=== PATIENT | female | born 1955 | race Two or more races ===

== ENCOUNTER 2017-08-07 11:00 | Inpatient (IN) | payer SELFPAY ==
[~2017-08-07] VITALS: Ht 170.2 cm; Wt 80.7 kg
[2017-08-07 11:35] LABS: BASOPHILS % 0.9 % (0.0-2.0); EOSINOPHILS % 3.4 % (0.0-5.0); HEMATOCRIT. 27.1 % (36.0-48.0); HEMOGLOBIN. 9.1 g/dL (12.0-16.0); LYMPHOCYTES % 11.6 % (20.0-50.0); MEAN CORPUSCULAR HEMOGLOBIN 29.7 pg (28.0-32.0); MEAN CORPUSCULAR VOLUME 88.2 fL (81.0-99.0); MEAN PLATELET VOLUME 8.9 fl (7.4-10.4); MONOCYTES % 10.4 % (2.0-8.0); NEUTROPHILS % 73.7 % (40.0-76.0); PLATELET 117 x1000/uL (130-400); RED BLOOD CELL COUNT 3.07 mill/uL (4.2-5.4)
[2017-08-07 11:42] LABS: PROTHROMBIN TIME 10.7 sec (9.4-11.6)
[2017-08-07 11:43] LABS: CHLORIDE 111 mEq/L (98-107)
[2017-08-07 11:45] LABS: CARBON DIOXIDE 17 mEq/L (21-32)
[2017-08-07 11:52] LABS: TROPONIN I 0.05 ng/mL (0.00-0.04)
[2017-08-07] MEDS ORDERED: INSULIN REGULAR (HUMULIN R) 300UNITS/3ML IV ONE (13:15)
[2017-08-07] MEDS ORDERED: DEXTROSE 50% WATER 50ML SYRINGE IV ONE (13:15)
[2017-08-07 16:00] VITALS: BP_SYST 140; BP_SYST 151; BP_DIAS 75; BP_DIAS 85
[2017-08-07] MEDS ORDERED: ACETAMINOPHEN 325MG TABLET PO PRN (16:30)
[2017-08-07] MEDS ORDERED: DOCUSATE SODIUM 100MG CAPSULE PO PRN (16:30)
[2017-08-07] MEDS ORDERED: CLONIDINE 0.1MG TABLET PO PRN (16:30)
[2017-08-07] MEDS ORDERED: MAGNESIUM/ALUMINUM HYDROXIDE/SIMETHICONE 30ML UDC PO PRN (16:30)
[2017-08-07] MEDS ORDERED: IPRATROPIUM/ALBUTEROL 0.5-3(2.5)MG/3ML NEB INH PRN (16:30)
[2017-08-07] MEDS ORDERED: GUAIFENESIN 200MG/10ML SUGAR FREE UDC PO PRN (16:30)
[2017-08-07] MEDS ORDERED: NA PHOS,M-B/NA PHOS,DI-BA ENEMA 118ML PR PRN (16:30)
[2017-08-07] MEDS ORDERED: ONDANSETRON HCL 4MG/2ML VIAL IV PRN (16:30)
[2017-08-07] MEDS ORDERED: DIPHENHYDRAMINE 50MG/ML VIAL IV PRN (16:30)
[2017-08-07] MEDS ORDERED: NITROGLYCERIN 0.4MG TABLET SL SL PRN (16:30)
[2017-08-07] MEDS: AMLODIPINE 10MG TABLET PO SCH (16:30)
[2017-08-07] MEDS: SEVELAMER CARBONATE 800 MG TABLET PO SCH (17:50)
[2017-08-07] MEDS ORDERED: DEXTROSE 50% WATER 50ML SYRINGE IV PRN (18:45)
[2017-08-07 20:42] VITALS: BP 104/57
[2017-08-07] MEDS: INSULIN LISPRO 100 UNITS/ML SUBCUT SCH (21:00)
[2017-08-07] MEDS: ATORVASTATIN CALCIUM 20MG TABLET PO SCH (21:00)
[2017-08-07] MEDS: BLOOD SUGAR DIAGNOSTIC STRIP TEST SCH (21:08)
[2017-08-07 23:21] LABS: TROPONIN I 0.03 ng/mL (0.00-0.04)
[2017-08-08] VITALS: BP 131/57
[2017-08-08 04:00] VITALS: BP 135/70
[2017-08-08 06:45] LABS: TROPONIN I 0.03 ng/mL (0.00-0.04)
[2017-08-08] MEDS: BLOOD SUGAR DIAGNOSTIC STRIP TEST SCH ×4 (07:03→20:45)
[2017-08-08 07:26] VITALS: BP 145/71
[2017-08-08] MEDS: INSULIN LISPRO 100 UNITS/ML SUBCUT SCH ×4 (07:50→20:45)
[2017-08-08] MEDS: FOLIC ACID/VITAMIN B COMP W-C TABLET PO SCH (08:10)
[2017-08-08] MEDS: SEVELAMER CARBONATE 800 MG TABLET PO SCH ×3 (08:10→18:20)
[2017-08-08] MEDS: ENOXAPARIN 30MG/0.3ML SYR SUBCUT SCH (08:10)
[2017-08-08] MEDS: PANTOPRAZOLE SODIUM 40 MG/VIAL IV SCH (08:10)
[2017-08-08] MEDS: AMLODIPINE 10MG TABLET PO SCH (08:11)
[2017-08-08 09:59] LABS: BASOPHILS % 0.8 % (0.0-2.0); EOSINOPHILS % 3.1 % (0.0-5.0); HEMATOCRIT. 26.5 % (36.0-48.0); LYMPHOCYTES % 13.8 % (20.0-50.0); MEAN CORPUSCULAR HEMOGLOBIN 29.3 pg (28.0-32.0); MEAN CORPUSCULAR VOLUME 86.8 fL (81.0-99.0); MEAN PLATELET VOLUME 8.7 fl (7.4-10.4); MONOCYTES % 9.9 % (2.0-8.0); NEUTROPHILS % 72.4 % (40.0-76.0); PLATELET 118 x1000/uL (130-400); RED BLOOD CELL COUNT 3.06 mill/uL (4.2-5.4); RED CELL DISTRIBUTION WIDTH 14.8 % (11.6-14.6)
[2017-08-08 11:28] VITALS: BP 132/61
[2017-08-08 15:29] VITALS: BP 118/55
[2017-08-08 20:00] VITALS: BP 117/65
[2017-08-08] MEDS: ATORVASTATIN CALCIUM 20MG TABLET PO SCH (20:45)
[2017-08-09] VITALS: BP 112/68
[2017-08-09 04:00] VITALS: BP 134/71
[2017-08-09 06:45] LABS: EOSINOPHILS % 3.8 % (0.0-5.0); HEMATOCRIT. 25.9 % (36.0-48.0); HEMOGLOBIN. 8.7 g/dL (12.0-16.0); LYMPHOCYTES % 20.2 % (20.0-50.0); MEAN CORPUSCULAR HEMOGLOBIN 29.1 pg (28.0-32.0); MEAN CORPUSCULAR VOLUME 86.6 fL (81.0-99.0); MEAN PLATELET VOLUME 8.4 fl (7.4-10.4); MONOCYTES % 12.8 % (2.0-8.0); NEUTROPHILS % 62.2 % (40.0-76.0); PLATELET 119 x1000/uL (130-400); RED BLOOD CELL COUNT 2.99 mill/uL (4.2-5.4)
[2017-08-09] MEDS: BLOOD SUGAR DIAGNOSTIC STRIP TEST SCH ×2 (06:53→12:16)
[2017-08-09 07:58] VITALS: BP 142/72
[2017-08-09] MEDS: SEVELAMER CARBONATE 800 MG TABLET PO SCH ×2 (08:06→12:52)
[2017-08-09] MEDS: ENOXAPARIN 30MG/0.3ML SYR SUBCUT SCH (08:06)
[2017-08-09] MEDS: INSULIN LISPRO 100 UNITS/ML SUBCUT SCH ×2 (08:06→12:52)
[2017-08-09] MEDS: AMLODIPINE 10MG TABLET PO SCH (08:06)
[2017-08-09] MEDS: PANTOPRAZOLE SODIUM 40 MG/VIAL IV SCH (08:06)
[2017-08-09] MEDS: FOLIC ACID/VITAMIN B COMP W-C TABLET PO SCH (08:06)
[2017-08-09 12:20] VITALS: BP 139/52
[2017-08-09 14:12] VITALS: BP 139/52
== END 2017-08-09 15:36 | disposition home or self-care (01) | DRG 425 ==
LOC: ER 11:10 → 6WST 13:06 → ENRESERV 14:38
PROVIDERS: ADMIT Internal Medicine; ATTEND Internal Medicine
PROC: 5A1D60Z (ICD-10-PCS; principal; 2017-08-07)
DX: E87.70 Fluid overload, unspecified (principal); G93.40 Encephalopathy, unspecified; J84.9 Interstitial pulmonary disease, unspecified; N18.6 End stage renal disease; D63.8 Anemia in other chronic diseases classified elsewhere; I13.11 Hypertensive heart and chronic kidney disease without heart failure, with stage 5 chronic kidney disease, or end stage renal disease; E44.0 Moderate protein-calorie malnutrition; E11.22 Type 2 diabetes mellitus with diabetic chronic kidney disease; E87.2 Acidosis; G93.89 Other specified disorders of brain; E87.5 Hyperkalemia; G40.909 Epilepsy, unspecified, not intractable, without status epilepticus; Z99.2 Dependence on renal dialysis; Z79.4 Long term (current) use of insulin; Z86.73 Personal history of transient ischemic attack (TIA), and cerebral infarction without residual deficits; Z79.82 Long term (current) use of aspirin; Z68.27 Body mass index [BMI] 27.0-27.9, adult
CPT/HCPCS: 36415; 70450; 70551; 71010; 80048; 80053; 80061; 82550; 82553; 82962; 83036; 83880; 84484; 85025; 85610; 93005; 93970; 96374; 96375; 99285; C9113; J1650; J1815; J7030